=== PATIENT | female | born 1990 | race Hispanic/Latino ===

== ENCOUNTER 2024-06-24 19:03 | Emergency (ER) | payer BC, OTHER ==
[~2024-06-24] VITALS: Ht 149.9 cm; Wt 65.8 kg
[2024-06-24 19:05] VITALS: PULSE 64; RESP 18; TEMP 98.6
[2024-06-24] MEDS ORDERED: CYCLOBENZAPRINE5 MG PO (19:23)
[2024-06-24] MEDS ORDERED: ONDANSETRON ODT4 MG PO (19:52)
[2024-06-24 20:28] VITALS: BP 154/74; PULSE 62; RESP 18; O2SAT 99
== END 2024-06-24 19:54 | disposition home or self-care (01) ==
LOC: FSED 19:21
DX: M54.50 Low back pain, unspecified (principal); I10 Essential (primary) hypertension; E11.9 Type 2 diabetes mellitus without complications; E78.5 Hyperlipidemia, unspecified; F32.A Depression, unspecified
CPT/HCPCS: 99283

== ENCOUNTER 2024-07-21 14:34 | Emergency (ER) | payer BC, OTHER ==
[~2024-07-21] VITALS: Ht 157.5 cm; Wt 81.6 kg
[~2024-07-21 14:34] MED LIST: CYCLOBENZAPRINE5 MG PO; ONDANSETRON ODT4 MG PO
[2024-07-21 14:45] VITALS: PULSE 88; RESP 19; TEMP 97.8; O2SAT 97
== END 2024-07-21 16:00 | disposition home or self-care (01) ==
LOC: ER 14:41
DX: R06.02 Shortness of breath (principal); R07.89 Other chest pain; R94.31 Abnormal electrocardiogram [ECG] [EKG]
CPT/HCPCS: 93005; 99284

== ENCOUNTER → 2024-08-20 | Outpatient (REF) | payer BC, OTHER | LOC: US 09:31 | PROVIDERS: ATTEND Nurse Practitioner Family | DX: R10.9 Unspecified abdominal pain (principal) | CPT/HCPCS: 76700; 76856 ==

== ENCOUNTER → 2024-09-28 | Day surgery (SDC) | payer BC, OTHER ==
[~2024-09-28] MED LIST changes: +FAMOTIDINE20 MG PO; +FENTANYL CITRATE/PF 100MCG/2 ML INJ ONE; +FLUOXETINE HCL20 M1 PO; +GEODON20 MG PO; +GLYCOPYRROLATE INJ 0.2 MG/ML VIAL ONE; +LACTATED RINGER'S 1,000 ML ONE; +LAMICTAL5 MG PO; +LIDOCAINE HCL 2% LOCAL INJ 5 ML SDV VIAL INJ ONE; +MIDAZOLAM HCL 2 MG/2 ML VIAL ONE; +PROPOFOL IV EMULSION 10 MG/ML 20 ML VIAL ONE
[2024-09-28 11:40] VITALS: BP 125/88; PULSE 80; RESP 18; TEMP 97.8; O2SAT 97
== END | disposition home or self-care (01) ==
LOC: OR 06:57
PROVIDERS: ATTEND Internal Medicine Gastroenterology
DX: R19.4 Change in bowel habit (principal); D12.4 Benign neoplasm of descending colon; K31.7 Polyp of stomach and duodenum; K25.3 Acute gastric ulcer without hemorrhage or perforation; K29.70 Gastritis, unspecified, without bleeding; K21.9 Gastro-esophageal reflux disease without esophagitis; K31.89 Other diseases of stomach and duodenum; K57.30 Diverticulosis of large intestine without perforation or abscess without bleeding; K64.8 Other hemorrhoids; D72.820 Lymphocytosis (symptomatic); F41.9 Anxiety disorder, unspecified; F31.9 Bipolar disorder, unspecified; Z79.899 Other long term (current) drug therapy
CPT/HCPCS: 43239; 43251; 45380; 45384; 81025; J2003; J2250; J2704; J3010; J7121; 45378; 45385